=== PATIENT | male | born 1980 ===

== ENCOUNTER 2018-07-08 14:04 | Observation (INO) ==
[2018-07-08] MEDS ORDERED: INFLUENZA VIRUS VACCINE 0.5 ML SYRINGE IM ONE (16:12)
[2018-07-08] MEDS ORDERED: ACETAMINOPHEN 325 MG TABLET PO PRN (16:45)
[2018-07-08] MEDS ORDERED: NITROGLYCERIN SL 0.4 MG TABLET SL PRN (16:45)
[2018-07-08] MEDS ORDERED: DOCUSATE SODIUM 100 MG CAPSULE PO PRN (16:45)
[2018-07-08] MEDS ORDERED: ONDANSETRON 4 MG/2 ML VIAL IV PRN (16:45)
[2018-07-08] MEDS: ASPIRIN EC 325 MG TABLET PO SCH (17:44)
[2018-07-08 17:52] LABS: Basophils % 0.5 % (0.0-0.8); Eosinophils # 0.2 10*3/uL (0.0-0.87); Eosinophils % 1.9 % (0.00-10.9); Hematocrit 44.2 VOL% (42.0-52.0); Hemoglobin 14.9 GM/DL (14.0-18.0); Immature Granulocytes % 0.9 %; Immature Granulocytes Absolute 0.07 #; Lymphocytes # 2.5 10*3/uL (1.4-4.0); Lymphocytes % 30.7 % (21.2-54.2); Mean Corpuscular HGB Conc 33.7 GM/DL (32-36); Mean Corpuscular Hemoglobin 30 PG (27-34); Mean Corpuscular Volume 88.8 FL (87-102); Mean Platelet Volume 10.8 FL (9.6-12.0); Monocytes # 0.7 10*3/uL (0.11-0.8); Monocytes % 8.2 % (1.7-12.7); Neutrophils # 4.8 10*3/uL (1.4-7.4); Neutrophils % 57.8 % (38.7-73.9); Platelet Count 166 T/CUMM (130-400); Red Blood Count 4.98 MC/CUMM (3.8-5.5); Red Cell Distribution Width 12.8 % (9.3-17.3); White Blood Count 8.2 T/CUMM (4-12)
[2018-07-08 18:12] LABS: Albumin 3.5 G/DL (3.4-5.0); Bilirubin,Total 0.6 MG/DL (0.2-1.0); Calcium 8.5 MG/DL (8.5-10.1); Osmolality,Calculated 275.5 MOS/KG (273-304); Potassium 3.6 MMOL/L (3.5-5.1); Total Protein 7.8 G/DL (6.4-8.3)
[2018-07-08 18:14] LABS: Troponin I < 0.015 NG/ML (0.00-0.045)
[2018-07-08] MEDS ORDERED: ENOXAPARIN 40 MG/0.4 ML SYRINGE SUBCUT SCH (21:00)
[2018-07-09 00:33] LABS: Troponin I < 0.015 NG/ML (0.00-0.045)
[2018-07-09 06:07] LABS: Troponin I < 0.015 NG/ML (0.00-0.045)
[2018-07-09 06:14] LABS: Risk Ratio 8.29; Thyroid Stimulating Hormone 0.007 uIU/ml (0.358-3.74); VLDL CHOLESTEROL 34.8 MG/DL
[2018-07-09] MEDS: ASPIRIN EC 325 MG TABLET PO SCH (08:20)
[2018-07-09 12:49] VITALS: BP 135/82
== END 2018-07-09 13:53 | disposition home or self-care (01) ==
LOC: SUATTDRO 15:52 → INTOOBSV 15:52 → N.TELEN 15:52
PROVIDERS: ADMIT Internal Medicine; ATTEND Hospitalist